=== PATIENT | male | born 1975 | race Caucasian/White ===

== ENCOUNTER 2017-05-17 16:56 | Emergency (ER) | payer OTHER ==
[~2017-05-17] VITALS: Ht 175.3 cm; Wt 59.0 kg
--- NOTE | ~2017-05-17 | EKG ---
[address] [place] [address] ELECTROCARDIOGRAM REPORT Name: EJ DAWKINS Room #: DEP KEATON Hernandez#: [id number] Admission: 05/17/17 Attend Phys: Discharge: 05/17/17 Date of : 71 Report #: [id number] THIS REPORT FOR: //name// [facility] ED Test Date: 2017-05-17 Test Time: 17:23:10 Pat Name: EJ DAWKINS Department: Room: Gender: M Seasoner Hand: Jim VIVEROS : 1975 Requested By: Teresa Dunn Order Number: [id number] MD: Pankaj Mohan Measurements Intervals [place] Rate: 124 P: 68 IA: 143 QRS: -2 QRSD: 95 T: 62 QT: 303 QTc: 436 Interpretive Statements Sinus tachycardia Minimal ST depression, lateral leads No previous ECG available for comparison Electronically Signed On 05-19-2017 22:11:54 CDT by Pankaj Mohan [email or web address] <ELECTRONICALLY SIGNED> By: Pankaj Mohan MD 05/19/17 2211 1723 1723 MD KIET Sadler
[2017-05-17 17:17] LABS: EOSINOPHILS 0.3 % (0.0-3.0); HEMATOCRIT 47.8 % (42.0-52.0); HEMOGLOBIN 16.2 gm/dL (14.0-18.0); LYMPHOCYTES 16.6 % (24.0-44.0); MCH 31.2 pg (26.0-34.0); MCHC 33.9 g/dL (28.0-37.0); MCV 92.2 fL (80.0-100.0); MONOCYTES 3.8 % (1.0-8.0); PLATELET COUNT 350 thou/uL (150-400); POLYS 78.9 % (36.0-66.0); RBC 5.18 mil/uL (4.50-6.00); RDW 12.9 % (10.5-14.5); WBC 13.5 thou/uL (4.0-11.0)
[2017-05-17 17:18] LABS: ABSOLUTE NEUTROPHILS 10.7 thou/uL (1.4-8.2); BASOPHILS 0.4 % (0.0-2.0)
[2017-05-17 17:21] LABS: MANUAL DIFF NO
[2017-05-17 17:27] LABS: CALCIUM 9.6 mg/dL (8.5-10.1); CREATININE 0.8 mg/dL (0.7-1.3); POTASSIUM 4.1 mmol/L (3.5-5.1)
[2017-05-17 17:31] LABS: ALBUMIN 4.7 g/dL (3.4-5.0); ALKALINE PHOSPHATASE 91 U/L (46-116); DIRECT BILIRUBIN < 0.1 mg/dL (<0.1-0.3); SGOT 24 U/L (15-37); SGPT 21 U/L (30-65); TOTAL BILIRUBIN 0.3 mg/dL (<0.1-1.0)
[2017-05-17 17:36] LABS: URINE BILIRUBIN NEGATIVE (Negative); URINE BLOOD 1+ (Negative); URINE COLOR YELLOW; URINE GLUCOSE-RANDOM* NEGATIVE (Negative); URINE KETONES NEGATIVE (Negative); URINE NITRITE NEGATIVE (Negative); URINE PROTEIN (DIPSTICK) NEGATIVE (Negative); URINE SPECIFIC GRAVITY <= 1.005 (1.003-1.035); URINE UROBILINOGEN 0.2 E.U./dl (0.2-1.0)
[2017-05-17 17:45] LABS: AMP/METHAMP POSITIVE (Negative); BACTERIA 1-9 Few /HPF (None Seen); BARBITURATES Negative (Negative); BENZODIAZEPINES Negative (Negative); CASTS None Seen /LPF (None Seen); COCAINE Negative (Negative); CRYSTALS None Seen /LPF (None Seen); METHADONE Negative (Negative); OPIATES Negative (Negative); PCP Negative (Negative); SQUAMOUS None Seen /LPF (0-3); THC Negative (Negative); URINE RBC 0-2 Rare /HPF (0-2); URINE WBC None Seen /HPF (0-5)
[2017-05-17 19:08] VITALS: BP 136/89
== END 2017-05-17 19:09 | disposition home or self-care (01) ==
LOC: ER 16:56
PROVIDERS: Nurse Practitioner Family
DX: S61.210A Laceration without foreign body of right index finger without damage to nail, initial encounter (principal); W25.XXXA Contact with sharp glass, initial encounter; Y93.89 Activity, other specified; Y92.89 Other specified places as the place of occurrence of the external cause; Y99.8 Other external cause status; F10.129 Alcohol abuse with intoxication, unspecified; F15.10 Other stimulant abuse, uncomplicated

== ENCOUNTER 2017-12-24 15:17 | Emergency (ER) | payer OTHER ==
[~2017-12-24] VITALS: Ht 170.2 cm; Wt 63.5 kg
[2017-12-25] MEDS ORDERED: ZOFRAN ODT4 MG DISSOLVE (03:15)
[2017-12-25] MEDS ORDERED: PEPCID20 MG PO (03:15)
== END 2017-12-24 20:40 | disposition home or self-care (01) ==
LOC: ER 15:17
DX: F10.10 Alcohol abuse, uncomplicated (principal)

== ENCOUNTER 2017-12-25 02:29 | Emergency (ER) | payer OTHER ==
[~2017-12-25] VITALS: Ht 172.7 cm; Wt 59.0 kg
--- NOTE | ~2017-12-25 | EKG ---
[address] [employer] [place] [address] ELECTROCARDIOGRAM REPORT Name: EJ DAWKINS [id number] Admission: 12/25/17 Attend Phys: Discharge: 12/25/17 Date of : 71 Report #: [id number] THIS REPORT FOR: //name// [facility] ED Test Date: 2017-12-25 Test Time: 02:39:27 Pat Name: EJ DAWKINS Department: Room: Gender: [employer]: [facility] : 1975 Requested By: Fausto Shepherd Order Number: [id number] MD: Jay De Guzman Measurements Intervals [place] Rate: 101 P: 80 ID: [id number] QRS: 27 QRSD: 92 T: 58 QT: 337 QTc: 437 Interpretive Statements Sinus tachycardia Left ventricular hypertrophy Compared to ECG 05/17/2017 17:23:10 No significant change was found Electronically Signed On 12-25-2017 15:01:08 CDT by Jay De Guzman [email or web address] <ELECTRONICALLY SIGNED> By: Jay De Guzman MD, [facility] 12/25/17 1501 0239 0239 Jay De Guzman MD, FACC /EPI
[2017-12-25] MEDS ORDERED: ZOFRAN ODT4 MG DISSOLVE (03:15)
[2017-12-25] MEDS ORDERED: PEPCID20 MG PO (03:15)
== END 2017-12-25 03:39 | disposition home or self-care (01) ==
LOC: ER 02:29
DX: R00.2 Palpitations (principal); F10.129 Alcohol abuse with intoxication, unspecified; F17.220 Nicotine dependence, chewing tobacco, uncomplicated